=== PATIENT | female | born 1930 | race Caucasian/White ===

== ENCOUNTER 2016-07-17 11:38 | Day surgery (SDC) | payer MEDICARE, OTHER ==
[~2016-07-17] VITALS: Ht 165.1 cm; Wt 40.9 kg
[2016-07-17] MEDS ORDERED: TRAMADOL (12:26)
[2016-07-17] MEDS ORDERED: ACETAMINOPHEN (12:26)
[2016-07-17] MEDS ORDERED: IBUPROFEN (12:26)
[2016-07-17] MEDS ORDERED: LISINOPRIL (12:26)
[2016-07-17] MEDS ORDERED: ALBUTEROL (12:26)
[2016-07-17] MEDS ORDERED: DILTIAZEM (12:26)
[2016-07-17] MEDS ORDERED: HEPARIN (12:26)
[2016-07-17] MEDS ORDERED: OSCAL (12:26)
[2016-07-17] MEDS ORDERED: AMLODIPINE (12:26)
[2016-07-17 12:28] VITALS: Ht 165.1 cm; Wt 40.9 kg
[2016-07-17 13:00] VITALS: BP 175/80; RESP 21
[2016-07-17] MEDS ORDERED: PROPOFOL 20 ML ONE (13:18)
[2016-07-17] MEDS ORDERED: LIDOCAINE 2% (SDV) 5 ML INJ ONE (13:18)
[2016-07-17] MEDS ORDERED: CEFAZOLIN 1 GM/50 ML (PMX) 50 ML IVPB ONE (13:20)
--- NOTE | 2016-07-17 14:05 | GILP ---
DATE OF PROCEDURE: 07/17/2016 NAME OF PROCEDURE: Esophagogastroduodenoscopy, percutaneous endoscopic gastrostomy tube placement. PREOPERATIVE DIAGNOSIS: A patient presenting with history of difficulty in swallowing and weight lo ss. Procedure at this time is performed to create access for long-term nutritional support. POSTOPERATIVE DIAGNOSIS: A patient presenting with history of difficulty in swallowing and weight l oss. Procedure at this time is performed to create access for long-term nutritional support. DESCRIPTION OF PROCEDURE: After the informed written consent was obtained, the patient was asked to lie in the supine position. Intravenous anesthesia was given by anesthesiologist, Dr. Pena. When the patient became somnolent, the Olympus video upper endoscope was introduced into the oropharynx, then into the esophagus, subsequently into the stomach and duodenum. No abnormal findings noted. S cope was withdrawn to the level of the gastric cavity. The anterior abdominal wall was prepared wit h Betadine and alcohol, 2 mL of 2% Xylocaine was infiltrated at the endoscopic illuminating site to the left of the umbilicus. A 5 mm incision was made by using the scalpel. Through this incision, a trocar was inserted into the stomach and through the trocar, a guidewire was inserted after removin g the stylet. The guidewire was grabbed with a polypectomy snare and then this guidewire was vipul t out through the mouth along with the endoscope. To this end of the guidewire, a #20 Microvasive G -tube was tied in a loop fashion and then it was brought out through the abdominal wall incision. A t this time, retention bumper was placed over the G-tube close to the skin. Tapered end of the brook rostomy tube was cut, the adapter was placed and the procedure was terminated. PLAN: Recommend starting G-tube feeding in a.m. Dictated By: SAMMY SNIDER MD NC/NTS Conf#: [id number] DID#: [id number] CC: SAMMY SNIDER MD; SHARYN DAVALOS MD;*EndCC*
[2016-07-17 14:18] VITALS: BP 113/56; PULSE 63; RESP 20
[2016-07-17] MEDS ORDERED: ONDANSETRON 4 MG INJ ONE (14:30)
== END 2016-07-17 14:57 | disposition home or self-care (01) ==
LOC: GIL 11:38
PROVIDERS: ATTEND Internal Medicine Gastroenterology
DX: R13.10 Dysphagia, unspecified (principal); I10 Essential (primary) hypertension; J44.9 Chronic obstructive pulmonary disease, unspecified
CPT/HCPCS: 43246; J0690; J2405